=== PATIENT | male | born 1995 | race Native Hawaiian/Other Pacific Islander ===

== ENCOUNTER 2025-02-12 10:05 | Outpatient (REF) | payer MEDICAID, SELFPAY ==
--- OUTSIDE RECORDS SUMMARY | 2025-02-12 09:00 | XMS_ITS | Encounter Summary ---
Author Organization [employer] Address [address] [place] [address] Care Team Providers Care Behavior Analyst Name Role Phone Eleni Beltran Primary Care Provider [phone] Encounter Details Date Type Department Care Team (Late st Contact Info) Description 02/12/2025 9:00 AM EDT Office Visit [facility] [address] [place], [place] [phone] Eleni Beltran FNP [address] [place] [address] Well adult exam (Primary Dx); Encounter for immunization Social History Tobacco Use Types Packs/Day Years Used Date Smoking Tobacco: Some Days Cigarettes Passive Smoke Exposure: Current Smokeless Tobacco: Current Alcohol Use Standard Drinks/Week Comments Defer 0 (1 standard drink = 0.6 oz pur e alcohol) Depression Answer Date Recorded Patient Health Questionnaire-9 Score 3 02/12/2025 Patient Health Questionnaire-9 Score 3 02/12/2025 Last PHQ-9: Questionnaire Data Not on file 0 02/12/2025 Housing Stability Answer Date Recorded What is your housing situation today? I have chelita bell 02/02/[address] you li ve. Do you have problems with any of the following? None of the above 02/02/2025 Food Insecurity Answer Date Recorded Within the past 12 months, y ou worried that your food would run out before you got money to buy more: Never True 02/02/2025 Within the past 12 months,th e food you bought just didn't last and you didn't have enough money to get more: Never True Transportation Answer Date Recorded In the past 12 months, has l ack of transportation kept you from medical appts, meetings, work or from getting things needed for daily living? No 02/02/2025 Utilities Answer Date Recorded In the past 12 months, has t he electric, gas, oil or water company threatened to shut off services in your home? No 02/02/2025 Depression Answer Date Recorded Patient Health Questionnaire-2 Score 1 02/12/2025 Internet Access Answer Date Recorded Internet Access Q1 Yes 02/02/2025 Internet Access Q2 Not on file 02/02/2025 Sex and Gender Information Value Date Recorded Sex Assigned at Male 11/29/2024 11:09 AM EDT Legal Sex Male 3:15 PM EDT Gender Identity Male 11/29/2024 11:09 AM EDT Sexual Orientation Straight 11/29/2024 11 :09 AM EDT documented as of this encounter Last Filed Vital Signs Vital Sign Reading Time Taken Comments Blood Pressure 124/66 02/12/2025 9:06 AM EDT Pulse 75 02/12/2025 9:06 AM EDT Temperature 36.3 C (97.4 F) 02/12/2025 9:06 AM EDT Respiratory Rate 16 02/12/2025 9:06 AM EDT Oxygen Saturation 96% 02/12/2025 9:06 AM EDT Inhaled Oxygen Concentration - - Weight 94.5 kg (208 lb 4 oz) 02/12/2025 9:06 AM EDT Height 175.9 cm (5' 9.24 ) 02/12/2025 9:06 AM ED T Body Mass Index 30.54 02/12/2025 9:06 AM EDT documented in this encounter Functional Status * Over the past 2 weeks, how often have you been bothered by any of the following problems? Question Answer Date of Assessment Author Patient Health Questionnaire -2 Score 1 02/12/2025 9:09 AM EDT Alexa Grant MA * Little interest or pleasure in doing things Answer Date of Assessment Author Not at all 02/12/2025 9:09 AM EDT Alexa Marshall MA * Feeling down, depressed, or hopeless Answer Date of Assessment Author Several days 02/12/2025 9:09 AM EDT Alexa Marshall MA * Trouble falling or staying asleep, or sleeping too much Answer Date of Assessment Author Several days 02/12/2025 9:09 AM EDAlexa Ventura MA * Feeling tired or having little energy Answer Date of Assessment Author Several days 02/12/2025 9:09 AM Alexa Hilario MA * Poor appetite or overeating Answer Date of Assessment Author Not at all 02/12/2025 9:09 AM Alexa Hilario MA * Feeling bad about yourself - or that you are a failure or have let yourself or your family down Answer Date of Assessment Author Not at all 02/12/2025 9:09 AM Alexa Hilario MA * Trouble concentrating on things, such as reading the newspaper or watching television Answer Date of Assessment Author Not at all 02/12/2025 9:09 AM Alexa Hilario MA * Moving or speaking so slowly that other people could have noticed? Or the opposite - being so fidgety or restless that you have been moving around a lot more than usual. Answer Date of Assessment Author Not at all 02/12/2025 9:09 AM Alexa Hilario MA * Thoughts that you would be better off or hurting yourself in some way Answer Date of Assessment Author Not at all 02/12/2025 9:09 AM Alexa Hilario MA * Patient Health Questionnaire-9 Score Answer Date of Assessment Author 3 02/12/2025 9:09 AM Alexa Hilario MA * How difficult have these problems made it for you to do your work, take care of things at home, or get along with other people? Answer Date of Assessment Author Not difficult at all 02/12/2025 9:09 AM Alexa Terry MA * Over the last 2 weeks, how often have you been bothered by any of the following problems? Question Answer Date of Assessment Author Feeling nervous, anxious, or on edge 1 02/12/2025 9:08 AM Alexa Sheppard MA Not being able to stop or control worrying 0 02/12/2025 9:08 AM Alexa Sheppard MA Worrying too much about different things 0 02/12/2025 9:08 AM EDT Alexa Grant MA Trouble relaxing 1 02/12/2025 9:08 AM EDT Alexa Noel MA Being so restless that it is hard to sit still 0 02/12/2025 9:08 AM EDT Alexa Grant MA Becoming easily annoyed or irritable 0 02/12/2025 9:08 AM EDT Alexa Grant MA Feeling afraid as if somethi ng awful might happen 1 02/12/2025 9:08 AM EDT Alexa Grant MA [id number] Total Score 3 02/12/2025 9:08 AM EDT Alexa Grant MA documented as of this encounter Plan of Treatment Upcoming Encounters Date Type Department Care Team (Late st Contact Info) Description 02/12/2025 2:00 PM EDT Office Visit [facility] [address] [place] [address] Abbott-Rey, Krystal, DDS [address] [place] [address] Scheduled Orders Name Type Priority Associated Diagnoses Orde r Schedule Comprehensive Metabolic Panel Lab Routine Well adult exam Expected: 02/12/2025 (Approximate), Expires: 02/11/2026 Hepatitis B Core Antibody, Total Lab Routine Well adult exam Expected: 02/12/2025 (Approximate), Expires: 02/11/2026 TSH Lab Routine Well adult exam Expected: 02/12/2025 (Approximate), Expires: 02/11/2026 Hepatitis B Surface Antibody, Qualitative Lab Routine Well adult exam Expected: 02/12/2025 (Approximate), Expires: 02/11/2026 Hepatitis B surface antigen, EIA Lab Routine Well adult exam Expected: 02/12/2025 (Approximate), Expires: 02/11/2026 Hepatitis C Antibody with Reflex to HCV, RNA, Quantitative, Real-Time PCR Lab Routine Well adult exam Expected: 02/12/2025, Expires: 02/11/2026 HIV-1/2 Antigen and Antibodies, Fourth Generation, with Reflexes Lab Routine Well adult exam Expected: 02/12/2025 (Approximate), Expires: 02/11/2026 Lipid Panel, Standard Lab Routine Well adult exam Expected: 02/12/2025 (Approximate), Expires: 02/11/2026 Vitamin D, 25-Hydroxy, Total, Immunoassay Lab Routine Well adult exam Expected: 02/12/2025 (Approximate), Expires: 02/11/2026 Chlamydia/N. Gonorrhoeae, PCR, Urine Lab Routine Well adult exam Ordered: 02/12/2025 documented as of this encounter Procedures Procedure Name Priority Date/Time Associated Diagnosis Comments CBC WITH AUTO DIFFERENTIAL Routine 02/12/2025 10:13 AM EDT Well adult exam HEMOGLOBIN A1C Routine 02/12/2025 10:13 AM EDT Well adult exam documented in this encounter Results * Hemoglobin A1c (02/12/2025 10:13 AM EDT) Hemoglobin A1c 5.6 <6.0 % [facility] Comment:Hemoglobin A1C Refer ence Range Adults: 4.8 - 6.0 % Non diabetic: < 6.0 % Goal: < 7.0 %Additional Action Suggested: > 8.0 %Note: Hemoglobin A1c results are invalid for patients with abnormal amounts of HbF. Blood transfusions may impact the HbA1c concentration in the patient sample. Estimated Average Glucose 114 mg/dL [facility] Comment:eAG = Estimated ave rage glucose which is %A1C expressed asaverage glucose, using the formula of the [id number] Glucose study (ADAG), Diabetes Care, Vol.31,#8,Jan. 2007 Blood Venous blood specimen / Unknown 02/12/2025 10:13 AM EDT 02/12/2025 11:16 AM EDT us Eleni Beltran [facility] BLOOD ORDERABLES Final Res ult [facility] [address] [place] [phone] * (ABNORMAL) CBC auto differential (02/12/2025 10:13 AM EDT) White Blood Count 6.5 4.8 - 10.8 X10*3/uL [facility] Red Blood Count 4.93 4.60 - 5.80 X10*6/uL [facility] Hemoglobin 14.0 14.0 - 18.0 g/dl [facility] Hematocrit 42.7 42.0 - 52.0 % [facility] Mean Corpuscular Volume 86.6 80.0 - 98.0 fL [facility] Mean Corpuscular Hemoglobin 28.4 27.0 - 33.0 pg [facility] Mean Corpuscular HGB Conc 32.8 31.0 - 36.0 g/dl [facility] Red Cell Distribution Width 12.6 11.0 - 16.0 % [facility] Platelet Count 138(L) 160 - 400 X10*3/uL [facility] Mean Platelet Volume 13.9(H) 9.4 - 12.4 fL [facility] Neutrophils Percent Auto 53.2 45 - 73 % [facility] Imm Gran Pct Auto 0.5(H) 0.0 - 0.4 % [facility] Lymphocytes Percent Auto 32.4 20 - 40 % [facility] Monocytes Percent Auto 10.1 2 - 11 % [facility] Eosinophils Percent Auto 3.3 0 - 4 % [facility] Basophils Percent Auto 0.5 0 - 2 % [facility] NRBC Pct Auto 0.0 0.0 - 0.2 /100WBC [facility] Neutrophils Absolute Auto 3.5 2.0 - 8.3 x10*3/uL [facility] Imm Gran Abs Auto 0.03 0.00 - 0.03 X10*3/uL [facility] Lymphocytes Absolute Auto 2.1 1.2 - 4.9 X10*3/uL [facility] Monocytes Absolute Auto 0.7 0.1 - 1.2 X10*3/uL [facility] Eosinophils Absolute Auto 0.2 0.0 - 0.4 X10*3/uL [facility] Basophils Absolute Auto 0.0 0.0 - 0.2 X10*3/uL [facility] NRBC Abs Auto 0.000 0.0 - 0.012 X10*3/uL [facility] Blood Venous blood specimen / Unknown 02/12/2025 10:13 AM EDT 02/12/2025 11:16 AM EDT Eleni [facility] LAB BLOOD ORDERABLES Final Res ult [facility] [address] [place] [phone] documented in this encounter Visit Diagnoses Diagnosis Well adult exam- Primary Routine general medical examination at a health care facility Encounter for immunization documented in this encounter Additional Health Concerns Assessment Noted Time PHQ-9 Depression Total Score: 3 02/13/20 25 9:09 AM EDT documented as of this encounter Care Teams Behavior Analyst Relationship Specialty Start Date End Date Eleni Beltran FNP [address] [place] [phone] PCP - General Family Medicine 02/12/25 documented as of this encounter
[2025-02-12 11:22] LABS: MANUAL DIFF FLAG NO
[2025-02-12 11:33] LABS: Hematocrit 42.7 % (42.0-52.0); Hemoglobin 14.0 g/dl (14.0-18.0); Imm Gran Abs Auto 0.03 X10*3/uL (0.00-0.03); Imm Gran Pct Auto 0.5 % (0.0-0.4); Lymphocytes Absolute Auto 2.1 X10*3/uL (1.2-4.9); Mean Corpuscular HGB Conc 32.8 g/dl (31.0-36.0); Mean Corpuscular Hemoglobin 28.4 pg (27.0-33.0); Mean Corpuscular Volume 86.6 fL (80.0-98.0); NRBC Abs Auto 0.000 X10*3/uL (0.0-0.012); NRBC Pct Auto 0.0 /100WBC (0.0-0.2); Platelet Count 138 X10*3/uL (160-400); Red Blood Count 4.93 X10*6/uL (4.60-5.80); White Blood Count 6.5 X10*3/uL (4.8-10.8)
[2025-02-12 11:42] LABS: Hemoglobin A1C 137.0665 umol/L; Total Hemoglobin (HGBA1C) 3677.4104 umol/L
--- OUTSIDE RECORDS SUMMARY | 2025-02-12 11:56 | XMS_ITS | Encounter Summary ---
Author Organization [employer] Address [address] [place] [address] Care Team Providers Care Refueling Rampman Name Role Phone Unavailable Primary Care Provider Unavailabl e Reason for Visit * Reason Onset Date Comments Chart Prep 02/09/2025 Encounter Details Date Type Department Care Team ([facility] st Contact Info) Description 02/09/2025 Telephone [facility] [address] [place], [place] [phone] Eleni Beltran FNP [address] [place], [place] [phone] Chart Prep Social History Tobacco Use Types Packs/Day Years Used Date Smoking Tobacco: Every Day Cigarettes Smokeless Tobacco: Never Alcohol Use Standard Drinks/Week Comments Defer 0 (1 standard drink = 0.6 oz pur e alcohol) Housing Stability Answer Date Recorded What is your housing situation today? I have chelita ebll 02/02/[address] you li [...] off services in your home? No 02/02/2025 Internet Access Answer Date Recorded Internet Access Q1 Yes 02/02/2025 Internet Access Q2 Not on file 02/02/2025 Sex and Gender Information Value Date Recorded Sex Assigned at Male 11/29/2024 11:09 AM EDT Legal Sex Male 3:15 PM EDT Gender Identity Male 11/29/2024 11:09 AM EDT Sexual Orientation Straight 11/29/2024 11 :09 AM EDT documented as of this encounter Miscellaneous Notes * Telephone Encounter - Alexa Larson MA - 02/09/2025 9:00 AM EDT Chart Prep Labs: not applicable Images: not applicable Referrals: not applicable Vaccines due: Covid, Flu, PCV20, Tdap, Hep B, Hep A, and HPV Screenings: Lipid panel, Hep C. Overdue care gaps: SBIRT, PHQ-9, KHUSHBOO-7, Disability screen, and Tobacco documented in this encounter Plan of Treatment Upcoming Encounters Date Type Department Care Team (Late st Contact Info) Description 02/12/2025 2:00 PM EDT Office Visit [facility] [address] [place] [address] Krystal Whitfield, MERRICK [address] [place] [address] documented as of this encounter Visit Diagnoses Not on filedocumented in this encounter
--- OUTSIDE RECORDS SUMMARY | 2025-02-12 11:57 | XMS_ITS | Encounter Summary ---
Author Organization [employer] Address [address] [place] [address] Care Team Providers Care Return To Factory Clerk Name Role Phone Eleni Beltran [facility] Primary Care Provider [phone] Encounter Details Date Type Department Care Team (Latest Contact Info) Description 02/12/2025 Travel Social History Tobacco Use Types Packs/Day Years [...] your housing situation today? I have chelita ray 02/02/[address] you li [...] AM EDT documented as of this encounter Functional Status * Over the [...] AM EDT Alexa Marshall MA * Feeling tired or having little energy Answer Date of Assessment Author Several days 02/12/2025 9:09 AM EDT Alexa Marshall MA * Poor appetite or overeating Answer Date of Assessment Author Not at all 02/12/2025 9:09 AM EDT Alexa Marshall MA * Feeling bad about yourself - or that you are a failure or have let yourself or your family down Answer Date of Assessment Author Not at all 02/12/2025 9:09 AM EDT Alexa Marshall MA * Trouble concentrating on things, such as reading the newspaper or watching television Answer Date of Assessment Author Not at all 02/12/2025 9:09 AM EDT Alexa Marshall MA * Moving or speaking so slowly that other people could have noticed? Or the opposite - being so fidgety or restless that you have been moving around a lot more than usual. Answer Date of Assessment Author Not at all 02/12/2025 9:09 AM EDT Alexa Marshall MA * Thoughts that you would be better off or hurting yourself in some way Answer Date of Assessment Author Not at all 02/12/2025 9:09 AM EDT Alexa Marshall MA * Patient Health Questionnaire-9 Score Answer Date of Assessment Author 3 02/12/2025 9:09 AM EDT Alexa Marshall MA * How difficult have these problems made it for you to do your work, take care of things at home, or get along with other people? Answer Date of Assessment Author Not difficult at all 02/12/2025 9:09 AM EDT Alexa Carter MA * Over the last 2 weeks, how often have you been bothered by any of the following problems? Question Answer Date of Assessment Author Feeling nervous, anxious, or on edge 1 02/12/2025 9:08 AM EDT Alexa Grant MA Not being able to stop or control worrying 0 02/12/2025 9:08 AM EDT Alexa Grant MA Worrying too much about different things [...] 02/12/2025 9:08 AM EDT Alexa Grant MA KHUSHBOO-7 Total Score 3 02/12/2025 9:08 AM EDT Alexa Grant MA documented as of this encounter Plan of Treatment Upcoming Encounters Date Type Department Care Team (Late st Contact Info) Description 02/12/2025 2:00 PM EDT Office Visit [facility] [address] [place] [address] Krystal Whitfield, DDS [address] [place] [address] documented as of this encounter Visit Diagnoses Not on filedocumented in this encounter Additional Health Concerns Assessment Noted Time PHQ-9 Depression Total Score: 3 02/13/20 25 9:09 AM EDT documented as of this encounter Care Teams Return To Factory Clerk Relationship Specialty Start Date End Date Eleni Beltran FNP [address] [place] [address] PCP - General Family Medicine 02/12/25 documented as of this encounter
--- OUTSIDE RECORDS SUMMARY | 2025-02-12 11:57 | XMS_ITS | Clinical Summary ---
Author Organization [employer] Address [address] [facility] [address] [place] [address] Care Team Providers Care Blockers Skiver Name Role Phone Eleni Beltran Primary Care Provider [phone] Allergies No known active allergies Medications acetaminophen (Tylenol Extra Strength) 500 MG tablet Take 2 tabs q 8 hrs prn for pain 30 tablet 02/12/2025 Active Active Problems Problem Noted Date Diagnosed Date Dental abscess 12/07/2024 Closed fracture of tooth 12/07/2024 Encounters Date Type Department Care Team Description 02/12/2025 9:00 AM EDT Office Visit [facility] [address] [place] [phone] Eleni Beltran FNP Well adult exam (Primary Dx); Encounter for immunization 02/12/2025 Travel 02/09/[address] [address] Eleni Beltran FNP Chart Prep 02/02/2025 Patient Outreach [facility] [address] [place], [place] [phone] Eleni Beltran FNP Pre-visit Planning (SDOH negative, Tobacco screening negative.) 01/08/2025 2:00 PM EDT Office Visit [facility]ULT DENT[facility] [address] [place] [phone] Lou Escamilla 01/08/2025 10:30 AM EDT Office Visit [facility] [address] [place] [address] Krystal Whitfield DDS Encounter for dental examination (Primary Dx); Dental caries; Dental calculus; Dental abscess 01/08/2025 Telephone [facility] [address] [place] [phone] Leland Groves MD NP 12/07/2024 10:30 AM EDT Office Visit [facility] [address] [place] [address] Migue Aceves, DDS Dental abscess (Primary Dx); Closed fracture of tooth, sequela 11/29/2024 11:30 AM EDT Office Visit [facility] [address] [facility] [place] [address] Krystal Whitfield, DDS Dental abscess (Primary Dx) from Last 3 Months Immunizations Immunization Administration Dates Next Due Pneumococcal Conjugate PCV 20 02/12/2025 Tdap 02/12/2025 Family History Medical History Relation Name Comments Hypertension Father Hypertension Paternal Grandfather Relation Name Status Comments Father Paternal Grandfather Social History Tobacco Use Types Packs/Day Years [...] Orientation Straight 11/29/2024 11 :09 AM EDT Last Filed Vital Signs Vital Sign Reading [...] Mass Index 30.54 02/12/2025 9:06 AM EDT Plan of Treatment Upcoming Encounters Date Type Department Care Team (Late st Contact Info) Description 02/12/2025 2:00 PM EDT Office Visit [facility] [address] [place] [address] Krystal Whitfield, DDS [address] [place] [address] Health Maintenance Due Date Last Done Comments HIV Screening 1996 Lipid Panel 1996 Family Planning (PISQ) 09/05/2011 HPV Vaccines (1 - Male 3-dos e series) 09/05/2011 Hepatitis C Screening 2014 Hepatitis A Vaccines (1 of 2 - Risk 2-dose series) 09/05/2015 Hepatitis B Vaccines (1 of 3 - 19+ 3-dose series) 09/05/2015 COVID-19 Vaccine (1 - 2023-2 5 season) 2025 Influenza Vaccine (#1) 2025 Dental Oral Exam 07/12/2025 01/08/2025 Dental Prophylaxis 07/12/2025 01/08/2025 Dental X-Ray: Bitewings 01/09/2026 01/08/2025 Alcohol/Substance Use Screening 02/12/2026 02/12/2025 Depression Screening 02/12/2026 02/12/2025, 02/12/2025 Disability Screening 02/12/2026 02/12/2025 SDOH Screening 02/12/2026 02/12/2025 Tobacco Screening 02/12/2026 02/12/2025 Dental X-Ray: Full Mouth 01/10/2028 025, 11/29/2024 DTaP/Tdap/Td Vaccines (2 - T d or Tdap) 02/12/2035 02/12/2025 Zoster Vaccines (1 of 2) 2046 RSV Patients and Patients Aged 60 years or older (1 - 1-dose 75+ series) 09/05/2071 Pneumococcal Vaccine: Pediatrics (0 to 5 Years) and At-Risk Patients (6 to 49) Years Completed 02/12/2025 HIB Vaccines Aged Out No longer eligi ble based on patient's age to complete this topic IPV Vaccines Aged Out No longer eligi ble based on patient's age to complete this topic Meningococcal B Vaccine Aged Out No l onger eligible based on patient's age to complete this topic Meningococcal Vaccine Aged Out No maximus tiffany eligible based on patient's age to complete this topic RSV under 20 months Aged Out No longe r eligible based on patient's age to complete this topic Rotavirus Vaccines Aged Out No longer eligible based on patient's age to complete this topic Procedures Procedure Name Priority Date/Time Associated Diagnosis Comments HEMOGLOBIN A1C Routine 02/12/2025 10:13 AM EDT Well adult exam CBC WITH AUTO DIFFERENTIAL Routine 02/12/2025 10:13 AM EDT Well adult exam PROPHYLAXIS - ADULT Routine 01/08/2025 2 :00 PM EDT CASE PRESENTATION, DETAILED AND EXTENSIVE TREATMENT PLANNING Routine 01/08/2025 10:30 AM EDT Encounter for dental examination Dental caries Dental calculus Dental abscess INTRAORAL - COMPLETE SERIES OF RADIOGRAPHIC IMAGES Routine 01/08/2025 10:30 AM EDT Encounter for dental examination Dental caries Dental calculus Dental abscess COMPREHENSIVE ORAL EVALUATION - NEW OR ESTABLISHED PATIENT Routine 01/08/2025 10:30 AM EDT Encounter for dental examination Dental caries Dental calculus Dental abscess 32 EXTRACTION Routine 01/08/2025 12:00 AM EDT 18 EXTRACTION Routine 01/08/2025 12:00 AM EDT 21 O COMPOSITE FILLING Routine 12:00 AM EDT 20 DO COMPOSITE FILLING Routine 01/08/2025 12:00 AM EDT 13 EXTRACTION Routine 01/08/2025 12:00 AM EDT 15 LO COMPOSITE FILLING Routine 01/08/2025 12:00 AM EDT 14 LO COMPOSITE FILLING Routine 01/08/2025 12:00 AM EDT 28 EXTRACTION Routine 01/08/2025 12:00 AM EDT 5 O COMPOSITE FILLING Routine 01/08/2025 12:00 AM EDT 4 O COMPOSITE FILLING Routine 01/08/2025 12:00 AM EDT 2 LO COMPOSITE FILLING Routine 12:00 AM EDT CASE PRESENTATION, DETAILED AND EXTENSIVE TREATMENT PLANNING Routine 12/07/2024 10:30 AM EDT 19 EXTRACTION, ERUPTED TOOTH OR EXPOSED ROOT (ELEVATION/FORCEPS REMOVAL) Routine 12/07/2024 10:30 AM EDT CASE PRESENTATION, DETAILED AND EXTENSIVE TREATMENT PLANNING Routine 11/29/2024 11:30 AM EDT Dental abscess PANORAMIC RADIOGRAPHIC IMAGE Routine 11/29/2024 11:30 AM EDT Dental abscess PALLIATIVE (EMERGENCY) TREATMENT OF DENTAL PAIN - MINOR PROCEDURE Routine 11/29/2024 11:30 AM EDT Dental abscess 19 DOBB(V)LL(V) COMPOSITE FILLING Routine 11/29/2024 12:00 AM EDT from Last 3 Months Results * (ABNORMAL) CBC auto differential (02/12/2025 10:13 AM EDT) White Blood Count 6.5 4.8 - 10.8 X10*3/uL [facility] Red Blood Count 4.93 4.60 - 5.80 X10*6/uL [facility] Hemoglobin 14.0 14.0 - 18.0 g/dl [facility] Hematocrit 42.7 42.0 - 52.0 % [facility] Mean Corpuscular Volume 86.6 80.0 - 98.0 fL [facility] Mean Corpuscular Hemoglobin 28.4 27.0 - 33.0 pg [facility] Mean Corpuscular HGB Conc 32.8 31.0 - 36.0 g/dl [facility] Red Cell Distribution Width 12.6 11.0 - 16.0 % [facility] Platelet Count 138(L) 160 - 400 X10*3/uL [facility] Mean Platelet Volume 13.9(H) 9.4 - 12.4 fL [facility] Neutrophils Percent Auto 53.2 45 - 73 % [facility] Imm Gran Pct Auto 0.5(H) 0.0 - 0.4 % [facility] Lymphocytes Percent Auto 32.4 20 - 40 % [facility] Monocytes Percent Auto 10.1 2 - 11 % [facility] Eosinophils Percent Auto 3.3 0 - 4 % [facility] Basophils Percent Auto 0.5 0 - 2 % [facility] NRBC Pct Auto 0.0 0.0 - 0.2 /100WBC [facility] Neutrophils Absolute Auto 3.5 2.0 - 8.3 x10*3/uL [facility] Imm Gran Abs Auto 0.03 0.00 - 0.03 X10*3/uL [facility] Lymphocytes Absolute Auto 2.1 1.2 - 4.9 X10*3/uL [facility] Monocytes Absolute Auto 0.7 0.1 - 1.2 X10*3/uL [facility] Eosinophils Absolute Auto 0.2 0.0 - 0.4 X10*3/uL [facility] Basophils Absolute Auto 0.0 0.0 - 0.2 X10*3/uL [facility] NRBC Abs Auto 0.000 0.0 - 0.012 X10*3/uL [facility] Blood Venous blood specimen / Unknown 02/12/2025 10:13 AM EDT 02/12/2025 11:16 AM EDT us Elenijennifer Beltran PROFESSOR OF VOICE LAB BLOOD ORDERABLES Final Res ult Performing Organization Address City/[facility]/ZIP Co de Phone Number [facility] [address] [place] [address] [phone] * Hemoglobin A1c (02/12/2025 10:13 AM EDT) Hemoglobin A1c 5.6 <6.0 % [facility] Comment:Hemoglobin A1C Refer ence Range Adults: 4.8 - 6.0 % Non diabetic: < 6.0 % Goal: < 7.0 %Additional Action Suggested: > 8.0 %Note: Hemoglobin A1c results are invalid for patients with abnormal amounts of HbF. Blood transfusions may impact the HbA1c concentration in the patient sample. Estimated Average Glucose 114 mg/dL [facility] Comment:eAG = Estimated ave rage glucose which is %A1C expressed asaverage glucose, using the formula of the [id number] Glucose study (ADAG), Diabetes Care, Vol.31,#8,Jan. 2007 Blood Venous blood specimen / Unknown 02/12/2025 10:13 AM EDT 02/12/2025 11:16 AM EDT us Eleni Mananjel PROFESSOR OF VOICE LAB BLOOD ORDERABLES Final Res ult Performing Organization Address [facility] Co de Phone Number [facility] [address] [place] [address] [phone] from Last 3 Months Insurance [employer] HSN FULL DENTAL-[facility] MEDICAID LIMITED ADULT DENTAL - HSN FULL (MEDICAID) Care Teams Blockers Skiver Relationship Specialty Start Date End Date Eleni Beltran FNP [address] [place] [phone] PCP - General Family Medicine 02/12/25
[2025-02-12 12:04] LABS: Alanine Aminotransferase 59 U/L (0-40); Albumin Level 4.7 g/dL (3.5-5.0); Alkaline Phosphatase 63 U/L (39-117); Anion Gap 10 (12-20); Aspartate Amino Transferase 37 U/L (5-37); Blood Urea Nitrogen 10 mg/dL (9-16); Calcium 9.1 mg/dL (8.4-10.2); Carbon Dioxide 26 mmol/L (22-29); Chloride 109 mmol/L (96-108); Cholesterol 158 mg/dL (<200); Estimated Glomerular Filt Rate > 60; HDL Cholesterol 41 mg/dL (>40); Potassium 4.3 mmol/L (3.3-5.1); Sodium 141 mmol/L (135-145); Thyroid Stimulating Hormone 0.65 uIU/mL (0.32-4.0); Total Protein 7.2 g/dL (6.5-8.0); Triglycerides 55 mg/dL (<150)
[2025-02-13 03:53] LABS: HBS Num1 0.00 mIU/mL (0-7.99); HBc Num1 0.03 S/CO (0.00-0.79); HBsAGNum1 0.49 S/CO (0.00-0.99); HIV Num 1 0.04 S/CO (0.00-0.99); Hepatitis B Surface Antigen Negative (Negative); ~HepC Num1 0.10 S/CO (0.00-0.79); ~Hepatitis B Surface Antibody NONREACTIVE (Nonreactive); ~Hepatitis C Antibody Nonreactive (Nonreactive)
== END 2025-02-12 10:06 | disposition home or self-care (01) ==
LOC: HO.HHCL 10:05
PROVIDERS: PCP Nurse Practitioner Family; Visit Provider Nurse Practitioner Family
DX: Z00.00 Encounter for general adult medical examination without abnormal findings (principal); Z11.59 Encounter for screening for other viral diseases
CPT/HCPCS: 36415; 80053; 80061; 82306; 83036; 84443; 85025; 86704; 86706; 86803; 87340; 87389